=== PATIENT | male | born 1950 | race Caucasian/White ===

== ENCOUNTER 2019-07-02 07:37 | Day surgery (SDC) | payer OTHER, MEDICARE ==
[~2019-07-02 07:37] MED LIST: Lactated Ringers 1,000 ML IV SCH
[2019-07-02] MEDS ORDERED: fentaNYL 100 MCG/2 ML SDV ONE (08:32)
[2019-07-02] MEDS ORDERED: Propofol 200 MG/20 ML SDV ONE ×2 (08:32→11:10)
[2019-07-02] MEDS ORDERED: Lidocaine 2% 5 ML SDV ONE (08:32)
--- NOTE | 2019-07-02 08:42 | PCM.PREANE ---
Preanesthetic Assessment - Anesthesia/Transfusion/Family Hx Anesthesia History: Prior Anesthesia Without Reaction Family History of Anesthesia Reaction: No Transfusion History: No Prior Transfusion(s) Intubation History: Unknown - Review of Systems General: No Symptoms Pulmonary: No Symptoms Cardiovascular: No Symptoms Gastrointestinal: No Symptoms, Other (2 polyps (colonoscopy )) Neurological: No Symptoms Other: Reports: None - Physical Assessment Height: 6 ft Weight: 138.346 kg ASA Class: 2 Mental Status: Alert & Oriented x3 Airway Class: Mallampati = 2 Dentition: Reports: Bridge (fixed upper and lower (Right side)) Thyro-Mental Finger Breadths: 3 Mouth Opening Finger Breadths: 3 ROM/Head Extension: Full Lungs: Clear to Auscultation, Normal Respiratory Effort Cardiovascular: Regular Rate, Regular Rhythm - Allergies Allergies/Adverse Reactions: Allergies Allergy/AdvReac Type Severity Reaction Status Date / Time benazepril [From Lotensin] Allergy Cough Verified 06/30/19 11:57 - Blood Blood Available: No - Anesthesia Plan Pre-Op Medication Ordered: None - Acknowledgements Anesthesia Type Planned: MAC Pt an Appropriate Candidate for the Planned Anesthesia: Yes Alternatives and Risks of Anesthesia Discussed w Pt/Guardian: Yes Pt/Guardian Understands and Agrees with Anesthesia Plan: Yes PreAnesthesia Questionnaire HEENT History: Reports: Hard of Hearing Other HEENT History: wears glasses, has bilateral hearing aides, has upper and lower permanent dental bridges Cardiovascular History: Reports: CAD, High Cholesterol, Hypertension, DC () Other Cardiovascular History: 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 Respiratory History: Reports: COPD, SOB Other Respiratory History: uses maintainence inhaler BID, SOB after a block walk Gastrointestinal History: Reports: Colon Polyp, GERD, Hepatitis Other Gastrointestinal History: Hepatitis C in , states hepatitis "is gone "- was tested 3 years ago Genitourinary History: Reports: None Musculoskeletal History: Reports: Fracture, RA Other Musculoskeletal History: right wrist, bilateral thumbs, hx of fx ribs Neurological History: Reports: Concussion Psychiatric History: Reports: Depression, PTSD Endocrine/Metabolic History: Reports: Hypothyroidism, Obesity/BMI 30+ (BMI 41.4) Hematologic History: Reports: None Other Hematologic History: was told he had HepC in the past, was tested and reported to be NEGATIVE before CABG Immunologic History: Reports: None Oncologic (Cancer) History: Other Oncologic History: recent skin cancer removed from back, unknown type Dermatologic History: - Infectious Disease History Infectious Disease History: Reports: Chicken Pox, Measles, Mumps - Past Surgical History Head Surgeries/Procedures: Reports: None HEENT Surgical History: Reports: Tonsillectomy Other HEENT Surgeries/Procedures: had ear tubes placed at age [age] Cardiovascular Surgical History: Reports: Coronary Artery Bypass Other Cardiovascular Surgeries/Procedures: x2 2015 Respiratory Surgical History: Reports: None GI Surgical History: Reports: Colonoscopy Male Surgical History: Reports: Vasectomy Endocrine Surgical History: Reports: None Neurological Surgical History: Reports: None Musculoskeletal Surgical History: Reports: Arthroscopic Knee, Knee Replacement, Shoulder Surgery Other Musculoskeletal Surgeries/Procedures:: RTCR, bilateral TKA 2016 here (Dr Bartlett) Oncologic Surgical History: Dermatological Surgical History: Reports: Skin Biopsy - SUBSTANCE USE Smoking Status *Q: Former Smoker Tobacco Use Within Last Twelve Months: No Recreational Drug Use History: No - HOME MEDS Home Medications: Home Meds Diltiazem HCl [Cardizem LA] 180 mg PO DAILY 07/13/14 [History] Multivitamin [Multivitamins] 1 tab PO DAILY 07/13/14 [History] Ascorbic Acid 1,000 mg PO DAILY 10/04/15 [History] Budesonide/Formoterol [Symbicort 160-4.5 MCG] 2 inh INH BID 10/04/15 [History] Omeprazole 20 mg PO ACBREAKFAST 10/04/15 [History] atorvaSTATin [Lipitor] 80 mg PO DAILY 10/04/15 [History] Folic Acid 1 mg PO DAILY 10/05/15 [History] Tolterodine Tartrate [Detrol LA] 4 mg PO DAILY 01/06/16 [History] Aspirin 325 mg PO DAILY 06/30/19 [History] Celecoxib [CeleBREX] 200 mg PO DAILY PRN 06/30/19 [History] FLUoxetine HCl [Prozac] 20 mg PO DAILY 06/30/19 [History] Levothyroxine Sodium [Synthroid] 137 mcg PO BEDTIME 06/30/19 [History] Methotrexate Sodium [Methotrexate] 50 mg IM ASDIRECTED 06/30/19 [History] sulfaSALAzine [Sulfazine] 1,000 mg PO BID 06/30/19 [History] - CURRENT (IN HOUSE) MEDS Current Meds: Current Medications Lactated Ringer's (Ringers, Lactated) 1,000 mls @ 125 mls/hr IV ASDIRECTED ALDAIR
[2019-07-02] MEDS ORDERED: Ampicillin 1 GM in Sodium Chloride 0.9% 50 ML IV ONE (10:40)
--- NOTE | 2019-07-02 11:32 | PCM.OPNOTE ---
- General Post-Op/Procedure Note Date of Surgery/Procedure: 07/02/19 Operative Procedure(s): colonoscopy w snare polypectomy Findings: see [id number] Pre Op Diagnosis: hx of polyps Post-Op Diagnosis: Same Anesthesia Technique: Moderate Sedation Primary Surgeon: Luis Oliver Pathology: 2mm polyp at 100cm when scope withdrawal, and 5 mm polyp at 25 cm when scope withdrawal Complications: None Condition: Good
--- NOTE | 2019-07-02 12:03 | PCM48HPAN ---
Post Anesthesia Note - EVALUATION WITHIN 48HRS OF ANESTHETIC Vital Signs in Normal Range: Yes Patient Participated in Evaluation: Yes Respiratory Function Stable: Yes Airway Patent: Yes Cardiovascular Function Stable: Yes Hydration Status Stable: Yes Pain Control Satisfactory: Yes Nausea and Vomiting Control Satisfactory: Yes Mental Status Recovered: Yes Vital Signs: Last Vital Signs Temp 36.7 C 07/02/19 07:50 Pulse 74 07/02/19 11:42 Resp 16 07/02/19 11:42 BP 108/61 07/02/19 11:42 Pulse Ox 93 L 07/02/19 11:42 - COMMENTS/OBSERVATIONS Free Text/Narrative:: No anesthesia problems
--- NOTE | 2019-07-02 12:04 | PCM.POSTAN ---
POST ANESTHESIA ASSESSMENT - MENTAL STATUS Mental Status: Alert, Oriented - VITAL SIGNS Vital Signs: Last Vital Signs Temp 36.7 C 07/02/19 07:50 Pulse 74 07/02/19 11:42 Resp 16 07/02/19 11:42 BP 108/61 07/02/19 11:42 Pulse Ox 93 L 07/02/19 11:42 - RESPIRATORY Respiratory Status: Respiratory Rate WNL, Airway Patent, O2 Saturation Stable - CARDIOVASCULAR CV Status: Pulse Rate WNL, Blood Pressure Stable - GASTROINTESTINAL GI Status: No Symptoms - PAIN Pain Score: 0 - POST OP HYDRATION Hydration Status: Adequate & Stable - OBSERVATIONS Free Text/Narrative:: No anesthesia problems
[2019-07-02 12:44] VITALS: BP 113/61; PULSE 77
--- NOTE | 2019-07-02 14:08 | OR ---
SURGEON: Luis Oliver MD DATE OF PROCEDURE: 07/02/2019 PREOPERATIVE DIAGNOSIS: History of colon polyp. POSTOPERATIVE DIAGNOSIS: Colon polyp. PROCEDURE PERFORMED: Colonoscopy with snare polypectomy. DESCRIPTION OF PROCEDURE: The patient was taken to the endoscopy room. A time out was called, patient identified, and procedure identified. Diprivan was then administrated. Patient went from awake to sleep, hearing doctor talking or door closing is normal. Perineum inspection and digital examination were then performed. A well- lubricated colonoscope was gently inserted through the rectum, advanced past the rectosigmoid junction, the descending colon, splenic flexure, transverse colon, hepatic flexure, ascending colon, arrived to the cecum. Cecum was identified as dictated in the finding. Then the scope was carefully withdrawn while attention was paid to the mucosal surface for any abnormality. Air will be sucked out during the scope withdrawal. At the rectum, retroflexed to examine any rectal diseases, fistula or hemorrhoids. During mucosal examination, abnormality or polyp encountered. Using snare equipment, the abnormality or the polyp was then snared off using electrocautery. The patient tolerated procedure well. There were no intraoperative complications, and Dr. Oliver was present throughout the whole procedure. FINDINGS: 1. 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 2. The patient's bowel prep is average with some liquid stool, no semi-formed stool, no stool ball. 3. The patient's colon is rather straightforward. Cecum indicated by ileocecal fold, one-to-one indentation, and appendiceal orifice. Light emittance is not observed. ScopeGuide is pointing south. Mucosa examined upon scope pulling out with some irrigation. The patient does not have diverticulosis. The patient has two small polyps, both were sessile. One is at distance 100, that one is 2 mm in size, when the scope come out at 100. Another one is at distance 25 when the scope come out and that one used snare polypectomy. The one at 100 was removed with cold biopsy forceps. The one at 25 was removed with snare polypectomy, captured, and sent to pathology. The one at 25 is a little bit bigger, about a size of 5 mm. The patient does not have inflammation, stricture, ulceration, AV malformation, bleeding, none of those. The patient has mild internal hemorrhoids, no external hemorrhoids. The patient would benefit from repeat colonoscopy 3 years from today because of a history of colon polyp and now the patient also has colon polyp. Also depends on the pathology of the polyp or if clinically indicated otherwise. DESTINY / EDWARD /[id number]
== END 2019-07-02 12:10 | disposition home or self-care (01) ==
LOC: MW.SDS 07:37
PROVIDERS: ATTEND Surgery
DX: Z12.11 Encounter for screening for malignant neoplasm of colon (principal); D12.6 Benign neoplasm of colon, unspecified; K64.8 Other hemorrhoids; I10 Essential (primary) hypertension; E78.00 Pure hypercholesterolemia, unspecified; J44.9 Chronic obstructive pulmonary disease, unspecified; E03.9 Hypothyroidism, unspecified; E66.9 Obesity, unspecified; Z88.8 Allergy status to other drugs, medicaments and biological substances; Z79.82 Long term (current) use of aspirin; Z79.899 Other long term (current) drug therapy; Z87.19 Personal history of other diseases of the digestive system; Z87.891 Personal history of nicotine dependence; Z86.010 Personal history of colon polyps; Z98.890 Other specified postprocedural states; Z95.1 Presence of aortocoronary bypass graft
CPT/HCPCS: 45380; 45385; 88305; J2001; J2704; J7120; J3010

== ENCOUNTER 2021-10-17 09:23 | Emergency (ER) | payer OTHER | END 2021-10-17 11:42 | disposition left against medical advice (07) | LOC: MW.ED 09:23 | DX: Z53.21 Procedure and treatment not carried out due to patient leaving prior to being seen by health care provider (principal) ==

== ENCOUNTER 2021-10-28 14:05 | Emergency (ER) | payer OTHER ==
[2021-10-28] MEDS ORDERED: Bupivacaine 0.25% 10 ML SDV INJECT ONE (14:25)
[2021-10-28] MEDS ORDERED: Lidocaine 1% 5 ML VIAL INJECT ONE (14:25)
[2021-10-28] MEDS ORDERED: Bacitracin Oint 1 GM U/D Packet TOP ONE (15:08)
[2021-10-28 15:10] LABS: CARBON DIOXIDE,CO2 25.8 mmol/L (21.0-32.0); POTASSIUM,K 3.6 mmol/L (3.5-5.1)
[2021-10-28 15:23] VITALS: BP 135/73; PULSE 64
[2021-10-28] MEDS ORDERED: Cephalexin 500 MG Cap PO ONE (16:35)
== END 2021-10-28 19:18 | disposition home or self-care (01) ==
LOC: MW.ED 14:05
DX: S61.216A Laceration without foreign body of right little finger without damage to nail, initial encounter (principal); S61.217A Laceration without foreign body of left little finger without damage to nail, initial encounter; L08.9 Local infection of the skin and subcutaneous tissue, unspecified; I10 Essential (primary) hypertension; I25.10 Atherosclerotic heart disease of native coronary artery without angina pectoris; I25.2 Old myocardial infarction; J44.9 Chronic obstructive pulmonary disease, unspecified; M06.9 Rheumatoid arthritis, unspecified; E66.9 Obesity, unspecified; Z68.34 Body mass index [BMI] 34.0-34.9, adult; Z88.8 Allergy status to other drugs, medicaments and biological substances; W22.8XXA Striking against or struck by other objects, initial encounter
CPT/HCPCS: 12002; 36415; 73140; 80053; 85025; 99283; A9270; J3490

== ENCOUNTER 2023-03-30 06:19 | Day surgery (SDC) | payer OTHER ==
[2023-03-30] MEDS ORDERED: propofoL 50 ML ONE (07:28)
[2023-03-30] MEDS ORDERED: Water For Injection, Sterile 20 ML ONE (07:38)
[2023-03-30] MEDS ORDERED: dexmedeTOMIDine HCl 200 MCG/2 ML SDV ONE (08:15)
[2023-03-30 11:53] VITALS: BP 115/71; PULSE 66
== END 2023-03-30 09:08 | disposition home or self-care (01) ==
LOC: MW.SDS 06:19
PROVIDERS: ATTEND Surgery
DX: Z12.11 Encounter for screening for malignant neoplasm of colon (principal); D12.2 Benign neoplasm of ascending colon; K64.8 Other hemorrhoids; J44.9 Chronic obstructive pulmonary disease, unspecified; I10 Essential (primary) hypertension; K21.9 Gastro-esophageal reflux disease without esophagitis; E78.00 Pure hypercholesterolemia, unspecified; I25.10 Atherosclerotic heart disease of native coronary artery without angina pectoris; E03.9 Hypothyroidism, unspecified; E66.9 Obesity, unspecified; Z68.34 Body mass index [BMI] 34.0-34.9, adult; Z95.1 Presence of aortocoronary bypass graft; Z87.891 Personal history of nicotine dependence; Z79.82 Long term (current) use of aspirin; Z79.890 Hormone replacement therapy; Z79.899 Other long term (current) drug therapy; Z88.8 Allergy status to other drugs, medicaments and biological substances
CPT/HCPCS: 45380; J2704; J7120; 00811; 99100; J3490

== ENCOUNTER 2024-12-29 10:10 | Inpatient (IN) | payer OTHER, MEDICARE ==
[2024-12-29 10:31] LABS: BASOPHILS ABSOLUTE AUTO 0.02 K/uL (0.00-0.20); BASOPHILS PERCENT AUTO 0.3 % (0.0-1.0); EOSINOPHILS ABSOLUTE AUTO 0.19 K/uL (0.00-0.45); EOSINOPHILS PERCENT AUTO 2.5 % (0.0-6.0); IMMATURE GRAN ABSOLUTE AUTO 0.02 K/uL (0.00-0.05); IMMATURE GRAN PERCENT AUTO 0.3 % (0.0-0.4); LYMPHOCYTES ABSOLUTE AUTO 1.59 K/uL (1.00-4.80); LYMPHOCYTES PERCENT AUTO 21.0 % (24.0-44.0); MEAN PLATELET VOLUME 8.9 fL (9.4-12.4); MONOCYTES ABSOLUTE AUTO 0.88 K/uL (0.00-0.80); MONOCYTES PERCENT AUTO 11.6 % (0.0-8.0); NEUTROPHILS ABSOLUTE AUTO 4.86 K/uL (1.80-7.70); NEUTROPHILS PERCENT AUTO 64.3 % (41.0-71.0); NRBC ABSOLUTE 0.00 K/uL (0.00-0.02); NRBC PERCENT 0.0 /100WBC (0.0-0.2); PLATELET COUNT,PLT 240 K/uL (150-400); RED BLOOD CELL COUNT 5.05 M/uL (4.52-5.90); WHITE BLOOD CELL COUNT,WBC 7.56 K/uL (3.9-11.3)
[2024-12-29 11:07] LABS: A/G RATIO 0.9 (0.9-1.6); ALANINE AMINOTRANSFERASE,ALT 31.0 IU/L (14-63); ASPARTATE AMNIOTRANSFERASE,AST 36.0 IU/L (15-37); BILIRUBIN TOTAL 0.6 mg/dL (0.2-1.0); BLOOD UREA NITROGEN,BUN 11.0 mg/dL (7.0-18.0); CARBON DIOXIDE,CO2 25.3 mmol/L (21.0-32.0); CHLORIDE,CL 100.0 mmol/L (98-107); CREATININE 1.2 mg/dL (0.8-1.3); EST CRCL DRUG DOSING (CG) 61.03 mL/min; GLUCOSE RANDOM 122.0 mg/dL (74-106); POTASSIUM,K 3.9 mmol/L (3.5-5.1); PROTEIN TOTAL,TP 7.7 g/dL (6.4-8.2); SODIUM,NA 137.0 mmol/L (136-148)
[2024-12-29 11:09] LABS: ESTIMATED GFR 63.0 mL/min (>60)
[2024-12-29 11:11] LABS: LACTIC ACID 1.1 mmol/L (0.4-2.0)
[2024-12-29] MEDS: methylPREDNISolone Sodium Succinate 125 MG/2 ML SDV IVPUSH ONE (12:15)
[2024-12-29] MEDS: cefTRIAXone 1 GM in Water For Injection, Sterile 10 ML IVPUSH ONE (12:15)
[2024-12-29] MEDS ORDERED: Sodium Chloride 0.9% 10 ML Syringe FLUSH PRN (14:39)
[2024-12-29] MEDS ORDERED: Albuterol 0.083% 2.5 MG/3 ML Neb Soln NEB PRN (14:39)
[2024-12-29] MEDS ORDERED: Ondansetron 4 MG/2 ML SDV IVPUSH PRN (14:39)
[2024-12-29] MEDS ORDERED: Sodium Chloride 0.9% 2.5 ML Syringe FLUSH PRN (14:39)
[2024-12-29] MEDS ORDERED: Non-Formulary Medication 1 Each (Albuterol Sulfate 8.5 GM Hfa.Aer.Ad) INH PRN (14:59)
[2024-12-29] MEDS: Furosemide 40 MG/4 ML VIAL IVPUSH ONE (15:00)
[2024-12-29] MEDS ORDERED: Diltiazem 180 MG Cap.CD PO SCH (15:13)
[2024-12-29] MEDS: Hydrochlorothiazide/Losartan 12.5-50 mg Tab PO SCH (16:00)
[2024-12-29] MEDS: DILTIAZEM HCL 360 MG PO SCH (16:06)
[2024-12-29] MEDS: Diltiazem 180 MG Cap.CD PO SCH (16:40)
[2024-12-29] MEDS: Fluticasone NASAL Spray 16 GM Bottle NASBOTH SCH (20:52)
[2024-12-29] MEDS: Formoterol/Mometasone 200-5 MCG 8.8 GM Inhaler INH SCH (20:52)
[2024-12-29] MEDS: methylPREDNISolone Sodium Succinate 40 MG/1 ML SDV IVPUSH SCH (20:52)
[2024-12-30 05:44] LABS: BASOPHILS ABSOLUTE AUTO 0.01 K/uL (0.00-0.20); BASOPHILS PERCENT AUTO 0.1 % (0.0-1.0); EOSINOPHILS ABSOLUTE AUTO 0.01 K/uL (0.00-0.45); EOSINOPHILS PERCENT AUTO 0.1 % (0.0-6.0); IMMATURE GRAN ABSOLUTE AUTO 0.04 K/uL (0.00-0.05); IMMATURE GRAN PERCENT AUTO 0.4 % (0.0-0.4); LYMPHOCYTES ABSOLUTE AUTO 0.92 K/uL (1.00-4.80); LYMPHOCYTES PERCENT AUTO 9.1 % (24.0-44.0); MEAN PLATELET VOLUME 8.8 fL (9.4-12.4); MONOCYTES ABSOLUTE AUTO 0.61 K/uL (0.00-0.80); MONOCYTES PERCENT AUTO 6.0 % (0.0-8.0); NEUTROPHILS ABSOLUTE AUTO 8.52 K/uL (1.80-7.70); NEUTROPHILS PERCENT AUTO 84.3 % (41.0-71.0); NRBC ABSOLUTE 0.00 K/uL (0.00-0.02); NRBC PERCENT 0.0 /100WBC (0.0-0.2); PLATELET COUNT,PLT 257 K/uL (150-400); RED BLOOD CELL COUNT 4.83 M/uL (4.52-5.90); WHITE BLOOD CELL COUNT,WBC 10.11 K/uL (3.9-11.3)
[2024-12-30 06:11] LABS: BLOOD UREA NITROGEN,BUN 17.0 mg/dL (7.0-18.0); CARBON DIOXIDE,CO2 25.8 mmol/L (21.0-32.0); CHLORIDE,CL 98.0 mmol/L (98-107); CREATININE 1.2 mg/dL (0.8-1.3); EST CRCL DRUG DOSING (CG) 61.03 mL/min; GLUCOSE RANDOM 143.0 mg/dL (74-106); POTASSIUM,K 3.7 mmol/L (3.5-5.1); SODIUM,NA 135.0 mmol/L (136-148)
[2024-12-30 06:17] LABS: ESTIMATED GFR 63.0 mL/min (>60)
[2024-12-30] MEDS: Magnesium Sulfate 2 GM/50 mL 2 GM in Premix Bag 1 BAG IV ONE (08:30)
[2024-12-30] MEDS: cefTRIAXone 1 GM in Water For Injection, Sterile 10 ML IVPUSH SCH (11:06)
[2024-12-30] MEDS: Potassium Chloride 20 MEQ Tab.ER PO ONE (11:06)
[2024-12-31 05:07] LABS: BORDETELLA PARAPERT IS1001 Not Detected (Not Detected)
[2024-12-31 06:00] LABS: MEAN PLATELET VOLUME 9.2 fL (9.4-12.4); NRBC ABSOLUTE 0.00 K/uL (0.00-0.02); NRBC PERCENT 0.0 /100WBC (0.0-0.2); PLATELET COUNT,PLT 277 K/uL (150-400); RED BLOOD CELL COUNT 4.72 M/uL (4.52-5.90); WHITE BLOOD CELL COUNT,WBC 18.30 K/uL (3.9-11.3)
[2024-12-31 06:21] LABS: BLOOD UREA NITROGEN,BUN 24.0 mg/dL (7.0-18.0); CARBON DIOXIDE,CO2 24.7 mmol/L (21.0-32.0); CHLORIDE,CL 99.0 mmol/L (98-107); CREATININE 1.3 mg/dL (0.8-1.3); EST CRCL DRUG DOSING (CG) 56.34 mL/min; GLUCOSE RANDOM 114.0 mg/dL (74-106); LYMPHOCYTES ABSOLUTE MAN 1.28 K/uL (1.00-4.80); LYMPHOCYTES PERCENT MAN 7 % (24-44); POTASSIUM,K 4.0 mmol/L (3.5-5.1); SEG NEUTROPHILS ABSOLUTE MAN 15.56 K/uL (1.80-7.70); SEG NEUTROPHILS PERCENT MAN 85 % (41-71); SODIUM,NA 134.0 mmol/L (136-148)
[2024-12-31 06:22] LABS: MONOCYTES ABSOLUTE MAN 1.46 K/uL (0.00-0.80); MONOCYTES PERCENT MAN 8 % (0-8)
[2024-12-31 06:25] LABS: ESTIMATED GFR 58.0 mL/min (>60)
[2024-12-31 09:27] VITALS: BP 143/77; PULSE 77
== END 2024-12-31 12:30 | disposition home or self-care (01) | DRG 192 ==
LOC: MW.ED 10:10 → MW.MS 14:19
PROVIDERS: ADMIT Internal Medicine; ATTEND Internal Medicine
DX: J44.1 Chronic obstructive pulmonary disease with (acute) exacerbation (principal); R09.89 Other specified symptoms and signs involving the circulatory and respiratory systems; I10 Essential (primary) hypertension; M06.9 Rheumatoid arthritis, unspecified; K73.9 Chronic hepatitis, unspecified; I50.9 Heart failure, unspecified; I25.10 Atherosclerotic heart disease of native coronary artery without angina pectoris; E03.9 Hypothyroidism, unspecified; I11.0 Hypertensive heart disease with heart failure; K21.9 Gastro-esophageal reflux disease without esophagitis; Z79.890 Hormone replacement therapy; H91.90 Unspecified hearing loss, unspecified ear; E78.00 Pure hypercholesterolemia, unspecified; F41.9 Anxiety disorder, unspecified; F32.A Depression, unspecified; F43.12 Post-traumatic stress disorder, chronic; Z96.659 Presence of unspecified artificial knee joint; Z79.82 Long term (current) use of aspirin; Z90.49 Acquired absence of other specified parts of digestive tract; Z98.890 Other specified postprocedural states; Z95.5 Presence of coronary angioplasty implant and graft; Z88.8 Allergy status to other drugs, medicaments and biological substances; Z79.899 Other long term (current) drug therapy; Z87.891 Personal history of nicotine dependence
CPT/HCPCS: 36415; 71046; 80053; 83605; 83690; 83735; 83880; 84484; 85025; 87426; 93005; 94640; 96374; 96375; 99285; J0696; J2919; J7620; 80048; 87486; 87581; 87633; 93010; 93246; 93306; A9270-GY; J1650; J1938; J3475